=== PATIENT | male | born 1945 | race African-American/Black ===

== ENCOUNTER 2017-05-26 20:46 | Emergency (ER) | payer MEDICARE ==
[~2017-05-26 20:46] MED LIST: ISOVUE-370 76%-LOCM 1 ML ONE
[2017-05-26 21:32] LABS: #Basophils 0.1 thou/uL (0.0-0.2); #Eosinphils 0.1 thou/uL (0.0-0.7); #Lymphocytes 3.1 thou/uL (1.20-3.40); #Monocytes 1.1 thou/uL (0.11-0.59); #Neutrophils 6.6 thou/uL (1.40-6.50); %Basophils 0.5 % (0.0-1.0); %Eosinophils 0.6 % (0.0-10.0); %Lymphocytes 28.1 % (21.0-51.0); %Monocytes 9.9 % (0.0-10.0); Hematocrit 43.4 % (42.0-52.0); Mean Platelet Volume 7.8 fL (7.4-10.4); Red Blood Cell (RBC) Count 4.84 mill/uL (4.70-6.10); White Blood Cell (WBC) Count 10.9 thou/uL (4.8-10.8)
[2017-05-26 21:40] LABS: ALT (SGPT) 17 U/L (8-55); AST (SGOT) 17 U/L (5-34); Alkaline Phosphatase 74 U/L (40-150); Anion Gap 10 mmol/L (10-20); BUN (Urea Nitrogen) 15 mg/dL (8.4-25.7); Calc. Creatinine Clearance 0 mL/min (70-130); Calcium 9.5 mg/dL (7.8-10.44); Carbon Dioxide 31 mmol/L (23-31); Chloride 105 mmol/L (98-107); Estimated GFR-MDRD 73; Globulin 3.3 g/dL (2.4-3.5); Protein, Total 7.4 g/dL (5.8-8.1)
[2017-05-26 22:01] LABS: Bilirubin Negative (Negative); Blood, Urine Negative (Negative); Glucose, Urine (Dipstick) Negative (Negative); Ketone, Urine Negative (Negative); Nitrite Negative (Negative); Protein, Urine (Dipstick) Negative (Neg-Trace); Urobilinogen 0.2 mg/dL (0.2-1.0)
[2017-05-26] MEDS ORDERED: Acetaminophen 500 MG TAB ONE (23:26)
--- NOTE | 2017-05-26 23:54 | CT ---
CONTRAST ENHANCED CT IMAGES ABDOMEN AND PELVIS 05/26/17 HISTORY: 72-year-old male with history of suprapubic pain. Contrast enhanced CT images of the abdomen and pelvis is obtained. Unfortunately oral contrast was no t given. This does decrease the sensitivity for detection of pathology. The lung bases demonstrate some fibrotic changes. No evidence of free intraperitoneal air is seen. The liver and spleen are unremarkable. The gallbladder is predominantly contracted but is unremarkabl e. The pancreas is unremarkable. No significant gastric abnormality is seen. Adrenal gland and kidney s are unremarkable. No evidence of renal calculi or hydronephrosis is seen. The small bowel is unrema rkable. There is extensive descending colonic diverticulosis. There is segment of the sigmoid colon which dem onstrates marked thickening. This is concerning for sigmoid diverticulitis although sigmoid colonic m ass cannot be excluded. There is some inflammatory change surrounding the sigmoid colon. L4-5 and L5 -S1 intervertebral disc degenerative changes also seen. IMPRESSION: Segment of sigmoid colonic thickening likely due to diverticulitis; however, colonic malignancy canno t be excluded. Correlate with direct visualization. POS: [facility]
[2017-05-27] MEDS ORDERED: metroNIDAZOLE 250 MG TAB ONE (00:12)
[2017-05-27] MEDS ORDERED: Cipro 250 MG TAB PO SCH (00:30)
== END 2017-05-27 00:55 | disposition home or self-care (01) ==
LOC: ERS 20:46
DX: K57.92 Diverticulitis of intestine, part unspecified, without perforation or abscess without bleeding (principal); E03.9 Hypothyroidism, unspecified; E78.5 Hyperlipidemia, unspecified; Z79.899 Other long term (current) drug therapy
CPT/HCPCS: 74177; 80053; 81003; 85025

== ENCOUNTER 2017-08-26 18:14 | Emergency (ER) | payer MEDICARE ==
[2017-08-26 19:21] LABS: #Lymphocytes 2.7 thou/uL (1.20-3.40); #Monocytes 0.4 thou/uL (0.11-0.59); #Neutrophils 4.1 thou/uL (1.40-6.50); %Basophils 0.6 % (0.0-1.0); %Eosinophils 0.6 % (0.0-10.0); %Monocytes 5.3 % (0.0-10.0); %Neutrophils 56.5 % (42.0-75.0); Hemoglobin 13.5 g/dL (14.0-18.0); Mean Corpuscular Hemoglobin 28.7 pg (27.0-31.0); Mean Corpuscular Volume 89.7 fl (80.0-94.0); Mean Platelet Volume 6.8 fL (7.4-10.4); Platelet Count 189 thou/uL (130-400); RBC Distribution Width 13.3 % (11.5-14.5); Red Blood Cell (RBC) Count 4.71 mill/uL (4.70-6.10); White Blood Cell (WBC) Count 7.2 thou/uL (4.8-10.8)
[2017-08-26 19:43] LABS: ALT (SGPT) 16 U/L (8-55); AST (SGOT) 19 U/L (5-34); Albumin 4.3 g/dL (3.4-4.8); Alkaline Phosphatase 66 U/L (40-150); Anion Gap 13 mmol/L (10-20); BUN (Urea Nitrogen) 14 mg/dL (8.4-25.7); Bilirubin, Total 1.1 mg/dL (0.2-1.2); CK (CPK) 162 U/L (30-200); Calc. Creatinine Clearance 0 mL/min (70-130); Calcium 9.5 mg/dL (7.8-10.44); Carbon Dioxide 26 mmol/L (23-31); Chloride 105 mmol/L (98-107); Estimated GFR-MDRD 79; Glucose 95 mg/dL (83-110); Potassium 4.2 mmol/L (3.5-5.1); Protein, Total 7.3 g/dL (5.8-8.1); Sodium 140 mmol/L (136-145)
== END 2017-08-26 19:51 | disposition home or self-care (01) ==
LOC: ERS 18:14
DX: R23.2 Flushing (principal); E78.5 Hyperlipidemia, unspecified
CPT/HCPCS: 36415; 80053; 82550; 85025; 93005

== ENCOUNTER 2019-01-26 00:22 | Emergency (ER) | payer MEDICARE ==
[2019-01-26] MEDS ORDERED: Meclizine HCl 25 MG TAB ONE (00:48)
--- NOTE | 2019-01-26 08:00 | CT ---
PRELIMINARY REPORT/[facility]/EMERGENCY AFTER HOURS PROCEDURE: EXAM: CT Head Without Contrast EXAM DATE/TIME: 01/26/2019 12:52 AM CLINICAL HISTORY: 73 years old, male; Patient HX: [id number] presents to ED C/O dizziness x1 wk. PT denies trauma or injury. P T cannot remember what he was doing with onset of dizziness, but that he was likely lying down in bed . PT reports pain is exacerbated when lying on back of his head and with movement. PT denies syncopal episodes, cp, SOB, and all other symptoms. PT denies n/v/d. 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 COMPARISON: No relevant prior studies available. FINDINGS: Brain: Normal. Ventricles: Normal. Bones/joints: Normal. Sinuses: Normal as visualized. Mastoid air cells: Normal as visualized. Soft tissues: Unremarkable. IMPRESSION: No acute intracranial abnormality. Thank you for allowing us to participate in the care of your patient. Dictated and Authenticated by: Jovanny Thornton MD 01/26/2019 1:37 AM Central Time ([place] & [place]) FINAL REPORT CT HEAD NONCONTRAST: DATE: 01/26/2019. TIME: Performed on an emergency basis at 0053 hours. HISTORY: Dizziness. Altered mental status. FINDINGS: No comparison. Agree with the preliminary report by Dr. Thornton from [facility]. No acute int racranial abnormalities are demonstrated. POS: [facility]
== END 2019-01-26 01:58 | disposition home or self-care (01) ==
LOC: ERS 00:22
DX: R42 Dizziness and giddiness (principal); E03.9 Hypothyroidism, unspecified; E78.5 Hyperlipidemia, unspecified; E78.00 Pure hypercholesterolemia, unspecified; F43.10 Post-traumatic stress disorder, unspecified; Z79.899 Other long term (current) drug therapy
CPT/HCPCS: 70450; 93005; J8597

== ENCOUNTER 2023-02-24 09:51 | Outpatient (CLI) | payer MEDICARE | END 2023-02-24 09:52 | disposition home or self-care (01) | LOC: RAD 09:51 | PROVIDERS: ATTEND Student in an Organized Health Care Education/Training Program | DX: R13.11 Dysphagia, oral phase (principal); R63.39 Other feeding difficulties | CPT/HCPCS: 74230 ==